=== PATIENT | male | born 1955 ===

== ENCOUNTER 2020-04-29 09:06 | Day surgery (SDC) | payer MEDICARE ==
[~2020-04-29] VITALS: Ht 177.8 cm; Wt 92.1 kg
[2020-04-29] MEDS ORDERED: LACTATED RINGERS 1,000 ML IV SCH (10:00)
[2020-04-29] MEDS ORDERED: CHLORHEXIDINE 15 ML UDC MM ONE (10:00)
[2020-04-29 10:05] VITALS: BP 97/62
[2020-04-29] MEDS ORDERED: MORP15TA PO (10:15)
[2020-04-29] MEDS ORDERED: OXYC-380 PO (10:15)
[2020-04-29] MEDS ORDERED: ASCO500T8 PO (10:15)
[2020-04-29] MEDS ORDERED: ZOLP10TA PO (10:15)
[2020-04-29] MEDS ORDERED: CARV6.252 PO (10:15)
[2020-04-29] MEDS ORDERED: DIAZ10TA4 PO (10:15)
[2020-04-29] MEDS ORDERED: AMIO200T42 PO (10:15)
[2020-04-29] MEDS ORDERED: OMEP-110 PO (10:15)
[2020-04-29] MEDS ORDERED: BUPR-173 PO (10:15)
[2020-04-29] MEDS ORDERED: APIX5TAB PO (10:15)
[2020-04-29] MEDS ORDERED: LISI5TAB7 PO (10:15)
[2020-04-29] MEDS ORDERED: LEVO125T5 PO (10:15)
[2020-04-29] MEDS ORDERED: SPIR25TA5 PO (10:15)
[2020-04-29 10:46] LABS: ALANINE AMINOTRANSFERASE 11 U/L (12-78); ALBUMIN 2.7 g/dL (3.4-5.0); ANION GAP 6 mmol/L (5-15); CALCIUM 8.3 mg/dL (8.5-10.1); CHLORIDE 104 mmol/L (98-107); CREATININE 0.61 mg/dL (0.7-1.3)
[2020-04-29 10:49] LABS: ALKALINE PHOSPHATASE 107 U/L (45-117); BILIRUBIN,TOTAL 0.9 mg/dL (0.2-1.0); TOTAL PROTEIN 6.4 g/dL (6.4-8.2)
[2020-04-29] MEDS ORDERED: BUPIVACAINE/PF-EPI 0.5% 1:200K ONE (11:10)
[2020-04-29] MEDS ORDERED: BUPIVACAINE/PF 0.5% ONE (11:10)
[2020-04-29] MEDS ORDERED: MIDAZOLAM 1 MG/ML, 2ML ONE (11:17)
[2020-04-29] MEDS ORDERED: FENTANYL PF 250 MCG/5ML ONE (11:17)
[2020-04-29] MEDS ORDERED: EPHEDRINE 50 MG/ML, 1ML ONE (11:35)
[2020-04-29] MEDS ORDERED: PROPOFOL 10 MG/ML, 20ML ONE (11:35)
[2020-04-29] MEDS ORDERED: PHENYLEPHRINE 10 MG/ML ONE (11:35)
[2020-04-29] MEDS ORDERED: CEFAZOLIN 1,000 MG ONE (11:35)
[2020-04-29] MEDS ORDERED: SUCCINYLCHOLINE 20 MG/ML, 10ML ONE (11:35)
[2020-04-29] MEDS ORDERED: ONDANSETRON 2MG/ML, 2ML ONE (11:35)
[2020-04-29] MEDS ORDERED: DEXAMETHASONE 4 MG/ML, 1ML ONE (11:35)
[2020-04-29] MEDS ORDERED: MEPERIDINE/PF 25MG/0.5ML IVPush PRN (12:30)
[2020-04-29] MEDS ORDERED: LABETALOL 5MG/ML, 20ML IV PRN (12:30)
[2020-04-29] MEDS ORDERED: FENTANYL PF 100 MCG/2ML IV PRN (12:30)
[2020-04-29] MEDS ORDERED: hydrALAzine 20 MG/ML, 1ML IV PRN (12:30)
[2020-04-29] MEDS ORDERED: ONDANSETRON 2MG/ML, 2ML IVPush PRN (12:30)
[2020-04-29] MEDS ORDERED: ACETAMINOPHEN 325 MG TABLET PO PRN (12:30)
[2020-04-29] MEDS ORDERED: OXYcodone 5 MG/5 ML ORAL.SOL UDC PO PRN (12:30)
[2020-04-29] MEDS ORDERED: HYDROmorphone 1 MG/ML, 1ML INJ IVPush PRN (12:30)
[2020-04-29] MEDS ORDERED: OXYcodone 5 MG/5 ML ORAL.SOL UDC ONE (13:08)
[2020-04-29] MEDS ORDERED: FENTANYL PF 100 MCG/2ML ONE (13:08)
[2020-04-29] MEDS ORDERED: HYDROmorphone 1 MG/ML, 1ML INJ ONE (13:11)
== END 2020-04-29 16:00 | disposition home or self-care (01) ==
LOC: OUT 09:06
PROVIDERS: ATTEND Orthopaedic Surgery
DX: S52.032A Displaced fracture of olecranon process with intraarticular extension of left ulna, initial encounter for closed fracture (principal); I10 Essential (primary) hypertension; E11.9 Type 2 diabetes mellitus without complications; M06.9 Rheumatoid arthritis, unspecified; M79.7 Fibromyalgia; I25.10 Atherosclerotic heart disease of native coronary artery without angina pectoris; G47.30 Sleep apnea, unspecified; Z20.822 Contact with and (suspected) exposure to COVID-19; Z79.82 Long term (current) use of aspirin; Z79.890 Hormone replacement therapy; Z79.891 Long term (current) use of opiate analgesic; Z79.899 Other long term (current) drug therapy; Z88.8 Allergy status to other drugs, medicaments and biological substances; Z89.021 Acquired absence of right finger(s); Z98.890 Other specified postprocedural states; W17.89XA Other fall from one level to another, initial encounter; Y93.89 Activity, other specified; Y92.89 Other specified places as the place of occurrence of the external cause; Y99.8 Other external cause status
CPT/HCPCS: 24685; 36415; 73080; 80053; 87635; 93005; C1713; J0330; J0690; J1100; J1170; J2250; J2370; J2405; J2704; J3010; J7120; 76000